=== PATIENT | female | born 1950 | race Caucasian/White ===

== ENCOUNTER 2025-03-11 20:25 | Emergency (ER) | payer MEDICARE, OTHER, SELFPAY ==
[2025-03-11 20:26] VITALS: BP 112/76
--- NOTE | 2025-03-11 23:10 | ED.GENMED ---
History of Present Illness
General
Chief Complaint: Fever
Source: patient and spouse
Exam Limitations: none
Time Seen by Provider: 03/11/25 22:52
Nursing documentation reviewed up to this point in time: agreed with
History of Present Illness
History of Present Illness:
The patient is a 74-year-old female with no significant past medical history, presenting with fever reaching 103�F that began on . The fever has been fluctuating and tends to peak during the evening. She denies any other associated symptoms
including cough, sore throat, congestion, headache, rash. No chest pain no abdominal pain. No dysuria and urgency and or hematuria. She was evaluated at urgent care where she underwent laboratory studies that were essentially unremarkable with
white blood cell count low at 3.8. Normal H&H. Normal platelet count. Unremarkable BMP. Urinalysis negative for nitrite, 6-10 WBCs, 1-5 epithelial cells, +1 bacteria. Chest x-ray reportedly negative. COVID and flu testing were negative. While
at urgent care patient developed an abrupt cough with some throat discomfort and mild shortness of breath. With onset of cough she was recommended to come to the ED for further evaluation. Cough, throat discomfort and shortness of breath promptly
resolved once leaving urgent care with exposure to fresh air. She has had no return of cough nor shortness of breath, continues to deny sore throat. No sense of swelling, no itching or rash. At urgent care she was treated with Tylenol and a liter
of IV fluids.
She recently traveled to [place] with a friend on a 10-hour bus ride each way, returning home 4 days prior to the onset of her symptoms.
No family members at home are currently sick, and there is no recent history of international travel. Currently, she reports no rash, gastrointestinal distress, or other systemic symptoms.
She takes no medicines on a daily basis.
No history of similar episodes in the past.
Past History
Past History
ED Past Medical History: Other (Vertigo); Negative Asthma, HTN, Hypercholesterolemia or NIDDM
ED Past Surgical History: None
Social History
Tobacco: Non-smoker
Alcohol: None
Drug: None
Personal:
Living: with family
Employment: Retired
Family History
Family History: Other (Noncontributory)
Phy Exam
Physical Exam
Physical Exam:
GENERAL: 74-year-old woman appears somewhat younger than stated age, bright and alert, pleasant, easily communicative and in no acute distress. Her is accompanying. She is currently afebrile.
EYE: pupils equal and reactive. anicteric
NECK: Supple, nontender, no meningismus, no significant adenopathy.
ENT: posterior pharynx is clear, oral mucosa is moist. TM clear b/l, nares patent.
CARDIAC: Regular rate and rhythm. no murmur. No rub.
LUNGS: Clear breath sounds bilaterally, no acute respiratory distress, no wheezes/rales/rhonchi
ABDOMEN: Soft, nondistended, without focal tenderness, no r/g, no cvat. normoactive BS.
NEUROLOGICAL: Alert and oriented x3, no focal neuro deficits. Gait is corona and steady.
SKIN: Warm and dry, normal color, skin intact. No rash. Scattered punctate macules over trunk which patient states are related to laser surgery by assembler body.
MUSCULOSKELETAL: No C/C/E. peripheral pulses are full and equal b/l. No palpable tenderness.
PSYCH: Normal and appropriate interaction.
Course
Orders/Labs/Results
Orders:
Orders
03/11/25 20:31
Electrocardiogram (*1) Urgent
Reason for Study: Shortness of Breath
EKG- Treatment ONCE
03/11/25 23:10
Urinalysis Reflex To Culture Urgent
Date Specimen was Collected: 03/11/25
Time Specimen was Collected: 23:10
Vital Signs
Initial and Last Documented VS:
Initial Vital Signs
Temp Pulse Resp BP Pulse Ox
98.6 F 79 16 112/76 98
03/11/25 20:26 03/11/25 20:26 03/11/25 20:26 03/11/25 20:26 03/11/25 20:26
Last Documented Vital Signs
Temp Pulse Resp BP Pulse Ox
98.6 F 79 16 112/76 98
03/11/25 20:26 03/11/25 20:26 03/11/25 20:26 03/11/25 20:26 03/11/25 23:13
MDM/Problems Addressed
Differential Diagnosis Includes:
The Differential Diagnosis includes, in no particular order and is not limited to:
1. Viral Upper Respiratory Infection
2. Influenza
3. COVID-19
4. Urinary Tract Infection
5. Bacterial Pneumonia
6. Acute Sinusitis
7. Bronchitis
8. Meningitis
9. Streptococcal Pharyngitis
10. Non-infectious causes such as medication reaction or autoimmune conditions.
MDM/Problems Addressed:
Acute febrile illness
Acute onset of cough while at urgent care which has since resolved.
Patient is overall very well in appearance. Currently afebrile.
No definitive source for fever.
Unremarkable laboratory studies, chest x-ray, urinalysis, COVID and flu testing by urgent care.
Would recommend repeat urinalysis with reflex to culture as indicated for completeness sake for potential asymptomatic UTI as cause for fever.
No indication to repeat laboratory studies nor chest x-ray.
EKG here is unremarkable, within normal limits.
I highly suspect viral syndrome as cause for fever.
And overall patient is quite well in appearance.
No history of immunocompromise nor significant medical issues.
Recommend continuing with supportive measures, staying well-hydrated on a daily basis.
Continue Tylenol as needed for fever, may add ibuprofen as needed as well.
Prompt follow-up with PCP for recheck.
Return precautions discussed.
*Pulse Oximetry
SaO2: 98
Oxygen Mode of Delivery: Room air
Patient hypoxic: no
*EKG
Interpreted by ED Provider?: Yes
Interpretation: normal
Comparison EKG: no changes
Rate: normal
Rhythm: sinus
[place]: normal axis
Interval: normal interval
QRS Pattern: normal QRS
Ischemia: no ischemia
*Critical Care Note
Total Time (30-74mins, 75-104mins- exclusive of procedures): Not Applicable
ED Attending Note
-
Portions of this chart may have been created with voice recognition software.� Occasional wrong word or��sound alike� substitutions may have occurred due to the inherent limitations of voice recognition software.
Discharge Plan
Departure
Patient Disposition: Home (Routine Discharge)
Date of Disposition: 03/11/25
Time of Disposition: 23:11
Patient with high blood pressure during this ER visit?: No
Condition: Good
Discharge Problem:
Acute febrile illness, Acute viral syndrome
Instructions: Fever, Adult (DC), Viral Syndrome (DC)
Prescriptions:
No Action
diltiazem HCl 120 MG capsule,extended release 24hr
120 mg PO DAILY Qty: 15 0RF
Referrals:
NONE,* [Family Provider, Internal Medicine]
Activity Restrictions/Additional Instructions:
Stay well-hydrated on a daily basis.
Continue Tylenol every 4 hours as needed for fever. Along with this, you may take ibuprofen 400 mg every 6 hours as needed for fever, aches.
Follow-up with your primary care physician on Thursday if fever persists.
If you develop any other worrisome symptoms, or feeling worse, prompt return to the ER for further evaluation.
Your urinalysis is pending. You will receive a call if urinalysis is concerning for urinary tract infection.
Interventions
Interventions:
*Risk Screen - Suicide Last Done: 03/11/25 20:26
*General Assessment Last Done: 03/11/25 20:26
*Neglect/Abuse Screening Last Done: 03/11/25 20:26
*ED- Fall Risk Assessment Last Done: 03/11/25 22:30
*ED COVID-19 Vaccine History Last Done: 03/11/25 22:30
*ED Influenza Vaccine History Last Done: 03/11/25 22:30
*Nursing Disposition Last Done: 03/11/25 23:18
ED- Neurological Assessment Last Done: 03/11/25 22:57
Discharge Date and Time
Print Language: LATVIAN
[2025-03-11 23:19] LABS: Urine Character Clear (Clear)
[2025-03-11 23:27] LABS: Urine Red Blood Cell 0-2 /HPF (0-2); Urine Squamous Cell 0-2 /LPF (Few)
== END 2025-03-11 23:19 | disposition home or self-care (01) ==
LOC: EMR 20:25
PROVIDERS: EMERGENCY PHYSICIAN Emergency Medicine
DX: B34.9 Viral infection, unspecified (principal)
CPT/HCPCS: 99284; 81003; 81015; 93005